=== PATIENT | female | born 1945 | race Caucasian/White ===

== ENCOUNTER → 2017-10-03 | Outpatient (CLI) | payer MEDICARE ==
[2017-10-03 16:25] LABS: Blood Urea Nitrogen 18 mg/dL (7-17); Non-African American GFR(MDRD) >60 (>60 ml/min/1.73 sqM)
--- NOTE | 2017-10-04 10:43 | CT ---
EXAMINATION TYPE: CT angio neck DATE OF EXAM: 10/03/2017 HISTORY: Temporary loss of vision in right eye 1 month ago. COMPARISON: Carotid Doppler duplex 09/20/2017 CT DLP: 298.80 mGycm. Automated Exposure Control for Dose Reduction was Utilized. TECHNIQUE: CTA scan of the neck is performed with IV Contrast, patient injected with 65 mL of Omnipa que 350, axial images are obtained, coronal and sagittal reformatted images are reviewed. Three-D rec onstructed images are created on an independent workstation and reviewed. FINDINGS: Carotid/Vascular Structures: Thoracic aorta is patent. There is a 3 vessel aortic arch. The innominat e, left and right subclavian, left and right common carotid, internal and external carotid, left and right vertebral arteries are patent, the left vertebral artery is dominant. Atheromatous changes pres ent at the origin of the right subclavian artery seen on axial image 17, there may be poststenotic di latation. Consider correlation with upper extremity blood pressure measurements. No hemodynamic signi ficant stenosis of the proximal internal carotid arteries is evident. Other: Skull base is normal. Salivary glands show symmetric appearance. Lung apices are remarkable fo r centrilobular emphysema change. 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 The ri ght vertebral artery is diminutive but patent and may account for carotid Doppler findings. No signif icant stenosis of the internal carotid arteries is evident.
== END | disposition home or self-care (01) ==
LOC: RADCTMAIN 15:57
PROVIDERS: ATTEND Internal Medicine Geriatric Medicine
DX: H54.61 Unqualified visual loss, right eye, normal vision left eye (principal)
CPT/HCPCS: 82565; 84520; 70498; 36415; Q9967

== ENCOUNTER → 2020-09-14 | Outpatient (CLI) | payer MEDICARE ==
--- NOTE | 2020-09-14 13:36 | XR ---
EXAMINATION TYPE: XR chest 2V DATE OF EXAM: 09/14/2020 COMPARISON: Prior chest x-ray 06/07/2016, CT 10/03/2017 HISTORY: R06.02, shortness of breath TECHNIQUE: Frontal and lateral views of the chest are obtained. FINDINGS: There is no focal air space opacity, pleural effusion, or pneumothorax seen. There are pro minent lung volumes with relative flattening of hemidiaphragms suggesting underlying COPD. The cardia c silhouette size is within normal limits. The osseous structures are intact. IMPRESSION: No acute cardiopulmonary process. Emphysema.
== END | disposition home or self-care (01) ==
LOC: RADXRMAIN 11:05
PROVIDERS: ATTEND Nurse Practitioner Family
DX: J43.9 Emphysema, unspecified (principal)
CPT/HCPCS: 71046

== ENCOUNTER → 2021-10-14 | Outpatient (CLI) | payer MEDICARE ==
--- NOTE | 2021-10-14 12:01 | XR ---
EXAMINATION TYPE: XR cervical spine comp DATE OF EXAM: 10/14/2021 COMPARISON: None HISTORY: 76-year-old R53.1, dizziness for 1 month TECHNIQUE: 6 views FINDINGS: No predental space widening or prevertebral soft tissue swelling. Degenerative changes of the C1 dens articulation. Minimal anterior endplate spondylosis C4-C5. There is preserved alignment of the cervi sushma spine. Limited odontoid view shows no gross anomaly. Uncovertebral joint and facet arthropathy mid to lower cervical spine. Changes result in mild bony fo raminal on the left at C4-C5. IMPRESSION: Mild to moderate uncovertebral joint and facet arthropathy mid to lower cervical spine. Mild neurofor aminal narrowing towards the left at C4-C5. No malalignment.
== END | disposition home or self-care (01) ==
LOC: RADXRMAIN 11:17
PROVIDERS: ATTEND Internal Medicine Geriatric Medicine
DX: M47.812 Spondylosis without myelopathy or radiculopathy, cervical region (principal); M99.71 Connective tissue and disc stenosis of intervertebral foramina of cervical region
CPT/HCPCS: 72050

== ENCOUNTER → 2021-10-14 | Outpatient (CLI) | payer MEDICARE ==
--- NOTE | 2021-10-14 12:00 | US ---
EXAMINATION TYPE: US carotid duplex BILAT DATE OF EXAM: 10/14/2021 COMPARISON: Carotid ultrasound September 20, 2017. CTA neck October 03, 2017 CLINICAL HISTORY: I65.23 Occlusion and stenosis of bilateral carotid. EXAM MEASUREMENTS: RIGHT: Peak Systolic Velocity (PSV) cm/sec ----- Right CCA: 72.2 ----- Right ICA: 88.3 ----- Right ECA: 78.7 ICA/CCA ratio: 1.2 RIGHT: End Diastole cm/sec ----- Right CCA: 10.6 ----- Right ICA: 18.4 ----- Right ECA: 0.0 LEFT: Peak Systolic Velocity (PSV) cm/sec ----- Left CCA: 78.7 ----- Left ICA: 93.3 ----- Left ECA: 129. ICA/CCA ratio: 1.15 LEFT: End Diastole cm/sec ----- Left CCA: 11.5 ----- Left ICA: 20.7 ----- Left ECA: 9.8 VERTEBRALS (direction of flow): Right Vertebral: Retrograde Left Vertebral: Antegrade Rhythm: Normal Grayscale images redemonstrate mild to moderate peripheral atherosclerotic changes at the carotid bul b level bilaterally. Velocity measurements and ratios remain within normal limits in the visualized p ortion of both internal carotid arteries. Suspected retrograde flow in the small caliber nondominant right vertebral artery redemonstrated. IMPRESSION: No hemodynamically significant stenosis in either internal carotid artery. Criteria for Assigning % of Stenosis / Diameter reduction (Estimation based on the indirect measurements of the internal carotid artery velocities (ICA PSV). 1. Normal (no stenosis)=ICA PSV < 125 cm/s: ratio < 2.0: ICA EDV<40 cm/s. 2. Less than 50% stenosis=ICA PSV < 125 cm/s: ratio < 2.0: ICA EDV<40 cm/s. 3. 50 to 69% stenosis=ICA PSV of 125 to 230 cm/s: ration 2.0 ? 4.0: ICA EDV 40-100 cm/s. 4. Greater than 70% stenosis to near occlusion= ICA PSV > 230 cm/s: ratio > 4.0: ICA EDV > 100 cm/s. 5. Near occlusion= ICA PSV velocities may be low or undetectable: variable ratio and ICA EDV. 6. Total occlusion=unable to detect flow.
== END | disposition home or self-care (01) ==
LOC: RADUSWWP 10:51
PROVIDERS: ATTEND Internal Medicine Geriatric Medicine
DX: I65.23 Occlusion and stenosis of bilateral carotid arteries (principal)
CPT/HCPCS: 93880

== ENCOUNTER → 2021-11-23 | Outpatient (CLI) | payer MEDICARE ==
--- NOTE | 2021-11-23 14:33 | MR ---
EXAMINATION TYPE: MR cervical spine wo con DATE OF EXAM: 11/23/2021 COMPARISON: Radiograph 10/14/2021 HISTORY: 76-year-old female R53.1 weakness, Left arm and hand numbness with headaches TECHNIQUE: Multiplanar, multisequence images of the cervical spine were acquired without contrast. FINDINGS: No craniocervical junction abnormality, predental space widening, or prevertebral soft tissue swellin g. Mild degenerative disc disease with variable disc desiccation. Small disc protrusions noted at C4-C5 and C5-C6. No suspicious bone marrow replacement. Scattered facet and uncovertebral joint arthropathy. Mild ligamentum flavum thickening lower cervical spine. Degenerative grade 1 anterolisthesis at T2-T3. Otherwise, alignment is maintained. At C2-C3, no canal or foraminal stenosis. At C3-C4, mild facet arthropathy. No canal or foraminal stenosis. At C4-C5, bilateral paracentral disc protrusions impressing on the ventral thecal sac. Uncovertebral joint arthropathy. No significant spinal canal stenosis. Mild bilateral neuroforaminal narrowing. At C5-C6, left paracentral disc protrusion indenting the ventral thecal sac. No significant spinal ca nal stenosis. Left-sided uncovertebral joint and bilateral facet arthropathy. Changes result in mild- to-moderate left neuroforaminal stenosis. At C6-C7, mild facet and uncovertebral joint arthropathy. Mild bilateral neuroforaminal narrowing. No spinal canal stenosis. At C7-T1, facet arthropathy. No significant canal or foraminal stenosis. Normal course, caliber, and signal intensity of the cervical spinal cord. IMPRESSION: 1. Mild multilevel degenerative disc disease especially C4-C5 and C5-C6 where small disc protrusions are present. No large focal disc herniation or significant spinal canal stenosis. 2. Scattered facet and uncovertebral joint arthropathy. Changes result in [id number] left neura l foraminal stenosis at C5-C6. Mild on both sides at C4-C5 and C6-C7. 3. Degenerative grade 1 anterolisthesis T2-T3. Cervical alignment is maintained.
== END | disposition home or self-care (01) ==
LOC: RADMRIMAIN 10:34
PROVIDERS: ATTEND Internal Medicine Geriatric Medicine
DX: M50.322 Other cervical disc degeneration at C5-C6 level (principal); M47.812 Spondylosis without myelopathy or radiculopathy, cervical region; M43.12 Spondylolisthesis, cervical region; M99.71 Connective tissue and disc stenosis of intervertebral foramina of cervical region
CPT/HCPCS: 72141

== ENCOUNTER 2024-11-21 09:35 | Emergency (ER) | payer MEDICARE ==
[2024-11-21 09:42] VITALS: RESP 18
--- NOTE | 2024-11-21 10:23 | ED ---
Recheck HPI - General Chief Complaint: Recheck/Abnormal Lab/Rx Stated Complaint: Hypertension Time Seen by Provider: 11/21/24 10:20 Source: patient, RN notes reviewed Mode of arrival: wheelchair Limitations: no limitations - History of Present Illness Initial Comments: 79-year-old female with history of hypertension presents for evaluation of elevated blood pressure. Patient was sent from stress testing due to high blood pressure prior to the test. Patient reports systolic blood pressure was in the 180s which is why they told her they cannot perform the stress test and sent her to the ER for further evaluation. Patient states she was told to hold her daily blood pressure medications prior to the stress test. Denies chest pain, vision changes, shortness of breath, headache, lightheadedness. - Related Data Allergies Allergy/AdvReac Type Severity Reaction Status Date / Time Penicillins Allergy Unknown Verified 11/21/24 09:38 Review of Systems ROS Statement: Those systems with pertinent positive or pertinent negative responses have been documented in the HPI. ROS Other: All systems not noted in ROS Statement are negative. Past Medical History Past Medical History: No Reported History Past Surgical History: No Surgical Hx Reported Smoking Status: Former smoker Past Alcohol Use History: None Reported Past Drug Use History: None Reported General Exam Limitations: no limitations General appearance: alert, in no apparent distress Head exam: Present: atraumatic, normocephalic, normal inspection Eye exam: Present: normal appearance, PERRL, EOMI. Absent: scleral icterus, conjunctival injection, periorbital swelling Respiratory exam: Present: normal lung sounds bilaterally. Absent: respiratory distress, wheezes, rales, rhonchi, stridor Cardiovascular Exam: Present: regular rate, normal rhythm, normal heart sounds. Absent: systolic murmur, diastolic murmur, rubs, gallop, clicks GI/Abdominal exam: Present: soft, normal bowel sounds. Absent: distended, tenderness, guarding, rebound, rigid Neurological exam: Present: alert, oriented X3, CN II-XII intact Psychiatric exam: Present: normal affect, normal mood Skin exam: Present: warm, dry, intact, normal color. Absent: rash Course Vital Signs 11/21/24 11/21/24 09:38 10:58 Temperature 97.7 F 98.7 F Pulse Rate 74 80 Respiratory 18 18 Rate Blood Pressure 156/85 165/82 O2 Sat by Pulse 97 977 H Oximetry Medical Decision Making - Medical Decision Making Was pt. sent in by a medical professional or institution (YULISSA Pitts, REFRIGERATION TECHNICIAN, urgent care, hospital, or usp...) When possible be specific @ -No Did you speak to anyone other than the patient for history (EMS, parent, family, police, friend...)? What history was obtained from this source @ -No Did you review nursing and triage notes (agree or disagree)? Why? @ -I reviewed and agree with nursing and triage notes Were old charts reviewed (outside hosp., previous admission, EMS record, old EKG, old radiological studies, urgent care reports/EKG's, usp records)? Report findings @ -No old charts were reviewed Differential Diagnosis (chest pain, altered mental status, abdominal pain women, abdominal pain men, vaginal bleeding, weakness, fever, dyspnea, syncope, headache, dizziness, GI bleed, back pain, seizure, CVA, palpatations, mental health, musculoskeletal)? @ -Hypertensive emergency, hypertensive urgency, asymptomatic hypertension EKG interpreted by me (3pts min.). @ -None X-rays interpreted by me (1pt min.). @ -None done CT interpreted by me (1pt min.). @ -None done U/S interpreted by me (1pt. min.). @ -None done What testing was considered but not performed or refused? (CT, X-rays, U/S, labs)? Why? @ -None What meds were considered but not given or refused? Why? @ -None Did you discuss the management of the patient with other professionals (professionals i.e. YULISSA Pitts, REFRIGERATION TECHNICIAN, lab, RT, psych nurse, social work therapist, lithopress operator, teacher, jailer/training officer, case reviewer)? Give summary @ -No Was smoking cessation discussed for >3mins.? @ -No Was critical care preformed (if so, how long)? @ -No Were there social determinants of health that impacted care today? How? (Homelessness, low income, unemployed, alcoholism, drug addiction, transportation, low edu. Level, literacy, decrease access to med. care, [facility], rehab)? @ -No Was there de-escalation of care discussed even if they declined (Discuss DNR or withdrawal of care, Hospice)? DNR status @ -No What co-morbidities impacted this encounter? (DM, HTN, Smoking, COPD, CAD, Cancer, CVA, ARF, Chemo, Hep., AIDS, mental health diagnosis, sleep apnea, morbid obesity)? @ -None Was patient admitted / discharged? Hospital course, mention meds given and route, prescriptions, significant lab abnormalities, going to OR and other pertinent info. @ -Discharge. This is a 79-year-old female with history of hypertension presenting for evaluation of high blood pressure. Patient was sent from stress testing due to elevated blood pressure prior to stress test. Patient was told to hold her blood pressure medications prior to the stress test. She is currently asymptomatic. Initial blood pressure 156/85, heart rate 74 bpm. Patient was monitored in the ER for 1 hour, repeat blood pressure 165/82. She was advised to take her routine blood pressure medications when she gets home. Appropriate return precautions and follow-up care discussed. Case was discussed with my ED attending Dr. Hammer. Undiagnosed new problem with uncertain prognosis? @ -No Drug Therapy requiring intensive monitoring for toxicity (Heparin, Nitro, Insulin, Cardizem)? @ -No Were any procedures done? @ -No Diagnosis/symptom? @ -Hypertension Acute, or Chronic, or Acute on Chronic? @ -Acute Uncomplicated (without systemic symptoms) or Complicated (systemic symptoms)? @ -Uncomplicated Side effects of treatment? @ -No Exacerbation, Progression, or Severe Exacerbation? @ -No Poses a threat to life or bodily function? How? (Chest pain, [place], [place], pneumonia, PE, COPD, DKA, ARF, appy, cholecystitis, CVA, Diverticulitis, Homicidal, Suicidal, threat to staff... and all critical care pts) @ -Not at this time Disposition Clinical Impression: Hypertension Disposition: HOME SELF-CARE Condition: Stable Instructions (If sedation given, give patient instructions): Hypertension (ED) Additional Instructions: Please take your at home blood pressure medications when you get home. Monitor your blood pressure twice daily at home and follow-up with your PCP as discussed. Please return to the Emergency Department if symptoms worsen or any other concerns. Is patient prescribed a controlled substance at d/c from ED?: No Referrals: Damaso Green MD [Primary Care Provider] - 1-2 days Time of Disposition: 11:01
[2024-11-21 10:59] VITALS: BP 165/82; PULSE 80; TEMP 98.7
== END 2024-11-21 11:07 | disposition home or self-care (01) ==
LOC: EC 09:35
DX: I10 Essential (primary) hypertension (principal); Z88.0 Allergy status to penicillin; Z87.891 Personal history of nicotine dependence
CPT/HCPCS: 99283

== ENCOUNTER → 2024-11-21 | Outpatient (CLI) | payer MEDICARE ==
[~2024-11-21] MED LIST: DOBUTamine DRIP for NUC MED 500 MG in DEXTROSE/WATER 1 250ML.BAG IV PRN
== END | disposition home or self-care (01) ==
LOC: RADNMMAIN 08:55
PROVIDERS: ATTEND Internal Medicine Geriatric Medicine
DX: Z53.9 Procedure and treatment not carried out, unspecified reason (principal)

== ENCOUNTER → 2024-12-09 | Outpatient (CLI) | payer MEDICARE ==
[2024-12-09 18:25] LABS: HCT 44.9 % (37.2-46.3); HGB 14.4 g/dL (12.0-15.0); MCH 29.4 pg (27.0-32.0); MCHC 32.1 g/dL (32.0-37.0); MCV 91.8 FL (80.0-97.0); Mean Platelet Volume 10.1 FL (9.5-12.2); NRBC Per 100 WBC 0 X 10*3/uL (0.00-0.01); Platelet Count 348 X 10*3/uL (140-440); RBC 4.89 X 10*6/uL (4.10-5.20); RDW 13.4 % (11.5-14.5); WBC 6.88 X 10*3/uL (4.50-10.00)
[2024-12-09 18:49] LABS: NT-Pro-B-Type Natriuretic Pept 252 pg/mL (0-450)
[2024-12-09 19:22] LABS: Chol/HDL Ratio 3.79 Ratio; LDL Cholesterol,Calculated 131.7 mg/dL (0.0-131.0)
[2024-12-09 19:27] LABS: Blood Urea Nitrogen 21.5 mg/dL (9.0-27.0); Chloride 101 mmol/L (96-109); Glucose 145 mg/dL (70-110); Potassium 4.4 mmol/L (3.5-5.5); Sodium 138 mmol/L (135-145)
[2024-12-09 19:28] LABS: ALT 15 U/L (8-44); AST 18 U/L (13-35); Albumin 4.5 g/dL (3.8-4.9); Alkaline Phosphatase 85 U/L (41-126); Calcium 9.8 mg/dL (8.7-10.3); Carbon Dioxide 22.1 mmol/L (21.6-31.8); Globulin 2.5 g/dL (1.6-3.3); Total Bilirubin 0.4 mg/dL (0.3-1.2)
== END | disposition home or self-care (01) ==
LOC: LABWHC1 09:03
PROVIDERS: ATTEND Student in an Organized Health Care Education/Training Program
DX: Z13.6 Encounter for screening for cardiovascular disorders (principal); I50.9 Heart failure, unspecified; D72.9 Disorder of white blood cells, unspecified; E11.9 Type 2 diabetes mellitus without complications; E78.5 Hyperlipidemia, unspecified; E03.9 Hypothyroidism, unspecified; R79.89 Other specified abnormal findings of blood chemistry
CPT/HCPCS: 36415; 80053; 80061; 83036; 83880; 84443; 85027

== ENCOUNTER → 2025-01-09 | Outpatient (CLI) | payer MEDICARE ==
[2025-01-09 15:12] LABS: HCT 42.3 % (37.2-46.3); HGB 13.7 g/dL (12.0-15.0); MCHC 32.4 g/dL (32.0-37.0); MCV 92.8 FL (80.0-97.0); Mean Platelet Volume 10.1 FL (9.5-12.2); NRBC Per 100 WBC 0 X 10*3/uL (0.00-0.01); Platelet Count 282 X 10*3/uL (140-440); RBC 4.56 X 10*6/uL (4.10-5.20); RDW 13.5 % (11.5-14.5); WBC 6.62 X 10*3/uL (4.50-10.00)
[2025-01-09 16:00] LABS: NT-Pro-B-Type Natriuretic Pept 212 pg/mL (0-450)
[2025-01-09 16:09] LABS: ALT 20 U/L (8-44); AST 23 U/L (13-35); Albumin 4.3 g/dL (3.8-4.9); Albumin/Globulin Ratio 1.48 Ratio (1.60-3.17); Alkaline Phosphatase 86 U/L (41-126); Blood Urea Nitrogen 22.2 mg/dL (9.0-27.0); Calcium 9.1 mg/dL (8.7-10.3); Carbon Dioxide 25.3 mmol/L (21.6-31.8); Chloride 102 mmol/L (96-109); Chol/HDL Ratio 4.49 Ratio; Globulin 2.9 g/dL (1.6-3.3); Glucose 150 mg/dL (70-110); LDL Cholesterol,Calculated 129.9 mg/dL (0.0-131.0); Potassium 4.3 mmol/L (3.5-5.5); Sodium 142 mmol/L (135-145); Total Bilirubin 0.4 mg/dL (0.3-1.2); Total Protein 7.2 g/dL (6.2-8.2)
== END | disposition home or self-care (01) ==
LOC: LABWHC1 09:48
PROVIDERS: ATTEND Student in an Organized Health Care Education/Training Program
DX: Z13.6 Encounter for screening for cardiovascular disorders (principal); I50.9 Heart failure, unspecified; E11.9 Type 2 diabetes mellitus without complications; E78.5 Hyperlipidemia, unspecified; E03.8 Other specified hypothyroidism; D72.9 Disorder of white blood cells, unspecified; R79.89 Other specified abnormal findings of blood chemistry
CPT/HCPCS: 36415; 80053; 80061; 83036; 83880; 84443; 85027; 86141